=== PATIENT | male | born 1970 | race Asian ===

== ENCOUNTER 2018-02-14 15:07 | Emergency (ER) | payer SELFPAY ==
[~2018-02-14] VITALS: Ht 157.5 cm; Wt 81.6 kg
[2018-02-14 15:09] VITALS: Ht 157.5 cm; Wt 81.6 kg
[2018-02-14 16:01] VITALS: BP 135/97
== END 2018-02-14 16:01 | disposition home or self-care (01) ==
LOC: ED 15:07
DX: S01.01XA Laceration without foreign body of scalp, initial encounter (principal); Z87.19 Personal history of other diseases of the digestive system; W22.8XXA Striking against or struck by other objects, initial encounter; Y93.89 Activity, other specified; Y92.89 Other specified places as the place of occurrence of the external cause; Y99.8 Other external cause status
CPT/HCPCS: 90715

== ENCOUNTER 2018-02-24 14:02 | Emergency (ER) | payer BC | END 2018-02-24 15:15 | disposition left against medical advice (07) | LOC: ED 14:02 | DX: Z53.21 Procedure and treatment not carried out due to patient leaving prior to being seen by health care provider (principal) ==

== ENCOUNTER 2018-02-27 13:09 | Emergency (ER) | payer BC ==
[~2018-02-27] VITALS: Ht 157.5 cm; Wt 80.3 kg
[2018-02-27 13:44] VITALS: BP 144/108; Ht 157.5 cm; Wt 80.3 kg
== END 2018-02-27 14:50 | disposition home or self-care (01) ==
LOC: ED 13:09
DX: S01.01XD Laceration without foreign body of scalp, subsequent encounter (principal); F17.210 Nicotine dependence, cigarettes, uncomplicated; X58.XXXD Exposure to other specified factors, subsequent encounter